=== PATIENT | female | born 1995 | race Caucasian/White ===

== ENCOUNTER 2018-07-25 13:22 | Emergency (ER) | payer OTHER ==
[~2018-07-25] VITALS: Ht 157.5 cm; Wt 84.9 kg
[~2018-07-25 13:22] MED LIST: NO HOME MEDS
[2018-07-25] MEDS ORDERED: HYDROcodone/acetaminophen 5mg/325mg tablet PO ONE (13:50)
[2018-07-25] MEDS ORDERED: HYDR-569 PO (14:55)
[2018-07-25] MEDS ORDERED: CYCL-1 PO (14:55)
[2018-07-25] MEDS ORDERED: NAPR-56 PO (14:55)
[2018-07-25 15:15] VITALS: BP 120/66
== END 2018-07-25 15:18 | disposition home or self-care (01) ==
LOC: ER 13:22
DX: S13.4XXA Sprain of ligaments of cervical spine, initial encounter (principal); S20.219A Contusion of unspecified front wall of thorax, initial encounter; R42 Dizziness and giddiness; Z88.0 Allergy status to penicillin; V49.88XA Car occupant (driver) (passenger) injured in other specified transport accidents, initial encounter; Y93.89 Activity, other specified; Y92.413 State road as the place of occurrence of the external cause; Y99.9 Unspecified external cause status
CPT/HCPCS: 71045; 72040; 99284; L0172